=== PATIENT | male | born 1935 | race Caucasian/White ===

== ENCOUNTER 2018-08-12 12:49 | Observation (INO) ==
--- NOTE | 2018-08-12 13:26 | Emergency Department Note ---
Disposition Clinical Impression: Chest pain Qualifiers: Chest pain type: unspecified Qualified Code(s): R07.9 - Chest pain, unspecified Disposition: Admitted As Inpatient Condition: Fair Referrals: Jami Corea DO [Primary Care Provider] - Forms: ED Satisfaction Letter Time of Disposition: 15:15 Chest Pain HPI - General Chief Complaint: ED Chest Pain Stated Complaint: CP Time Seen by Provider: 08/12/18 12:59 Source: patient, family Mode of arrival: ambulatory Limitations: age Vital Signs Reviewed: Yes Nursing Notes Reviewed: Yes - History of Present Illness HPI Narrative: Patient presenting to the ED if the chief complaint of chest pain. Patient has a history of dementia so history is limited and some history is obtained from the daughter. The patient. Patient reports chest pain whenever he woke up this morning. He is unable to describe the quality as whether it is sharp or dull. He does point to his epigastrium where he states it hurts. Family member states that he was pointing to the left side of his chest this morning and that he had open heart surgery for an aortic valve replacement and is on Coumadin and since then has had issues with his xiphoid area. He is also complaining of a headache this morning that has since resolved but they did not notice any facial droop or focal weakness at that time. Patient denies any shortness of breath. He denies any other abdominal pain, but does point to his epigastrium. No vomiting and unable to elicit any history of nausea or diarrhea. No fevers at home Severity scale (1-10): 0 - Related Data Home Medications Medication Instructions Recorded Confirmed Benazepril HCl 08/12/18 Cholecalciferol (D-3) [Vitamin D] 08/12/18 Donepezil 08/12/18 Folic Acid 08/12/18 Furosemide [Lasix] 08/12/18 Glimepiride 08/12/18 Metformin HCl 08/12/18 Methotrexate 08/12/18 Multivitamin 08/12/18 Potassium Chloride 08/12/18 Pravastatin Sodium 08/12/18 Toprol Xl 08/12/18 Vitamin B12 08/12/18 Warfarin 08/12/18 amLODIPine 08/12/18 Allergies Allergy/AdvReac Type Severity Reaction Status Date / Time aspirin Allergy Rash Verified 08/12/18 12:55 povidone-iodine AdvReac Itching Verified 08/12/18 12:55 [From Betadine] soap [From Betadine] AdvReac Itching Verified 08/12/18 12:55 Review of Systems: As reviewed in the HPI. All other systems reviewed are negative or normal. Chest Pain PMH - Past Medical History Medical history: Reports: other Psychiatric history: Reports: no psych history - Social History Smoking Status: Never smoker Alcohol use: Reports: none Drug use: Reports: none Physical Exam CONSTITUTIONAL: [well appearing, alert and in no acute distress] EYES: [EOMI, clear conjunctiva, PERRLA] HENT: [Normocephalic, atraumatic, moist mucus membranes, normal oropharynx] NECK: [normal inspection, full ROM, trachea midline, no obvious swelling] PULMONARY: [normal lung sounds bilaterally, normal chest rise and fall, no respiratory distress or stridor, no wheezes, no rales, no rhonchi CARDIOVASCULAR: [A. fib, harsh systolic murmur, distal extremities are warm and well perfused] GASTROINSTESTINAL: [soft, non-tender, non-rigid, baseline distended, no guarding, no rebound, normal bowel sounds] GENITOURINARY/RECTAL: [deferred] NEUROLOGIC: [Alert, oriented to person and place but not time (baseline), normal speech, moves all extremities] EXTREMITIES: [Normal inspection, full ROM, no tenderness, no pedal edema, normal capillary refill] MUSCULOSKELETAL: [no gross deformities, atraumatic] SKIN: [No cyanosis, no diaphoresis, normal color, warm, no rash] PSYCHIATRIC: [normal mood and affect] Course - Reevaluation(s) Reevaluation #1: Workup his back is unremarkable. Troponin negative. BNP is elevated and his chest x-ray did show some pulmonary vascular congestion without overt edema. Patient is not in acute heart failure. We will give him a dose Lasix. Patient admitted to hospitalist service Vital Signs Temperature 97.7 F 08/12/18 12:51 Pulse Rate 57 08/12/18 12:51 Respiratory Rate 16 08/12/18 12:51 Blood Pressure 135/98 08/12/18 12:51 O2 Sat by Pulse Oximetry 91 08/12/18 12:51 Temperature 97.7 F 08/12/18 13:19 Pulse Rate 61 08/12/18 15:05 Respiratory Rate 18 08/12/18 15:05 Blood Pressure 112/68 08/12/18 15:05 O2 Sat by Pulse Oximetry 100 08/12/18 15:05 Oxygen Delivery Oxygen Delivery Room Air Chest Pain - Medical Records Medical records reviewed: Yes I reviewed the patient's medical records. - Lab Data Lab results reviewed: Yes I reviewed the patient's lab results. Result diagrams: 08/12/18 13:23 08/12/18 13:34 Lab Results 08/12/18 08/12/18 08/12/18 Range/Units 13:13 13:13 13:23 WBC 9.6 (4.3-11.1) K/mcL RBC 3.73 L (4.19-5.50) M/mcL Hgb 11.8 L (12.9-16.9) g/dL Hct 36.2 L (37.5-50.1) % MCV 97.1 (83.0-100.0) fL MCH 31.6 (28.0-33.3) pg MCHC 32.6 (31.6-35.5) g/dL RDW 14.6 H (11.5-14.5) % Plt Count 184 (140-400) K/mcL MPV 11.6 (9.4-12.4) fL Immature Gran % 0.2 (0-4) % Seg Neutrophils % 65.2 % Lymphocytes % 26.7 % Monocytes % 7.0 % Eosinophils % 0.6 % Basophils % 0.3 % Neutrophils # 6.2 (1.6-8.9) K/mcL Lymphocytes # 2.6 (0.6-4.6) K/mcL Monocytes # 0.7 (0.0-1.3) K/mcL Eosinophils # 0.1 (0.0-0.6) K/mcL Basophils # 0.0 (0.0-0.2) K/mcL PT 24.9 H (9.4-12.1) Seconds INR 2.2 Sodium (136-145) mEq/L Potassium (3.5-5.1) mEq/L Chloride (98-107) mEq/L Carbon Dioxide (23-29) mEq/L BUN (8-23) mg/dL Creatinine (0.70-1.30) mg/dL Est GFR ( Amer) (> 60) Est GFR (Non-Af Amer) (> 60) BUN/Creatinine Ratio (6-26) Glucose (70-105) mg/dL Calculated Osmolality (280-300) Calcium (8.6-10.3) mg/dL Troponin I (< 0.04) ng/mL B-Natriuretic Peptide 404 H (Less than 100) pg/mL 08/12/18 Range/Units 13:34 WBC (4.3-11.1) K/mcL RBC (4.19-5.50) M/mcL Hgb (12.9-16.9) g/dL Hct (37.5-50.1) % MCV (83.0-100.0) fL MCH (28.0-33.3) pg MCHC (31.6-35.5) g/dL RDW (11.5-14.5) % Plt Count (140-400) K/mcL MPV (9.4-12.4) fL Immature Gran % (0-4) % Seg Neutrophils % % Lymphocytes % % Monocytes % % Eosinophils % % Basophils % % Neutrophils # (1.6-8.9) K/mcL Lymphocytes # (0.6-4.6) K/mcL Monocytes # (0.0-1.3) K/mcL Eosinophils # (0.0-0.6) K/mcL Basophils # (0.0-0.2) K/mcL PT (9.4-12.1) Seconds INR Sodium 140 (136-145) mEq/L Potassium 4.6 (3.5-5.1) mEq/L Chloride 106 (98-107) mEq/L Carbon Dioxide 26 (23-29) mEq/L BUN 29 H (8-23) mg/dL Creatinine 1.29 (0.70-1.30) mg/dL Est GFR ( Amer) > 60 (> 60) Est GFR (Non-Af Amer) 53 L (> 60) BUN/Creatinine Ratio 22 (6-26) Glucose 76 (70-105) mg/dL Calculated Osmolality 295 (280-300) Calcium 9.8 (8.6-10.3) mg/dL Troponin I < 0.03 (< 0.04) ng/mL B-Natriuretic Peptide (Less than 100) pg/mL - Radiology Data Radiology results reviewed: Yes I reviewed the patient's radiology results. - EKG Data EKG attestation: Yes I reviewed and interpreted this EKG. EKG results narrative: A. fib, rate 62, normal axis, no ischemic changes Heart Score - Score History: Moderately Suspicious EKG: Non Specific repolarisation Disturbance Age: Greater than 65 Risk Factors: 1-2 risk factors Troponin: Less than normal limit HEART Score Total: 5
--- NOTE | 2018-08-12 13:34 | Emergency Department Note ---
Disposition Clinical Impression: Chest pain Qualifiers: Chest pain type: unspecified Qualified Code(s): R07.9 - Chest pain, unspecified Disposition: Admitted As Inpatient Referrals: Jami Corea DO [Primary Care Provider] - Forms: ED Satisfaction Letter Time of Disposition: 15:15 General Adult HPI - General Chief complaint: ED Chest Pain Stated complaint: CP Time Seen by Provider: 08/12/18 12:59 Source: patient, family Mode of arrival: ambulatory Limitations: age - History of Present Illness Pain Scale: 0 - Related Data Home Medications Medication Instructions Recorded Confirmed Benazepril HCl 08/12/18 Cholecalciferol (D-3) [Vitamin D] 08/12/18 Donepezil 08/12/18 Folic Acid 08/12/18 Furosemide [Lasix] 08/12/18 Glimepiride 08/12/18 Metformin HCl 08/12/18 Methotrexate 08/12/18 Multivitamin 08/12/18 Potassium Chloride 08/12/18 Pravastatin Sodium 08/12/18 Toprol Xl 08/12/18 Vitamin B12 08/12/18 Warfarin 08/12/18 amLODIPine 08/12/18 Allergies Allergy/AdvReac Type Severity Reaction Status Date / Time aspirin Allergy Rash Verified 08/12/18 12:55 povidone-iodine AdvReac Itching Verified 08/12/18 12:55 [From Betadine] soap [From Betadine] AdvReac Itching Verified 08/12/18 12:55 Past Medical History - Past Medical History Medical history: Reports: other Psychiatric history: Reports: no psych history - Social History Smoking Status: Never smoker Smokeless Tobacco Status: No Alcohol use: Reports: none Drug use: Reports: none Physical Exam - General Limitations: age General appearance: alert Course Vital Signs Temperature 97.7 F 08/12/18 12:51 Pulse Rate 57 08/12/18 12:51 Respiratory Rate 16 08/12/18 12:51 Blood Pressure 135/98 08/12/18 12:51 O2 Sat by Pulse Oximetry 91 08/12/18 12:51 Temperature 97.7 F 08/12/18 13:19 Pulse Rate 61 08/12/18 15:05 Respiratory Rate 18 08/12/18 15:05 Blood Pressure 112/68 08/12/18 15:05 O2 Sat by Pulse Oximetry 100 08/12/18 15:05 Oxygen Delivery Oxygen Delivery Room Air Medical Decision Making - Lab Data Result diagrams: 08/12/18 13:23 08/12/18 13:34 Lab Results 08/12/18 08/12/18 08/12/18 Range/Units 13:13 13:13 13:23 WBC 9.6 (4.3-11.1) K/mcL RBC 3.73 L (4.19-5.50) M/mcL Hgb 11.8 L (12.9-16.9) g/dL Hct 36.2 L (37.5-50.1) % MCV 97.1 (83.0-100.0) fL MCH 31.6 (28.0-33.3) pg MCHC 32.6 (31.6-35.5) g/dL RDW 14.6 H (11.5-14.5) % Plt Count 184 (140-400) K/mcL MPV 11.6 (9.4-12.4) fL Immature Gran % 0.2 (0-4) % Seg Neutrophils % 65.2 % Lymphocytes % 26.7 % Monocytes % 7.0 % Eosinophils % 0.6 % Basophils % 0.3 % Neutrophils # 6.2 (1.6-8.9) K/mcL Lymphocytes # 2.6 (0.6-4.6) K/mcL Monocytes # 0.7 (0.0-1.3) K/mcL Eosinophils # 0.1 (0.0-0.6) K/mcL Basophils # 0.0 (0.0-0.2) K/mcL PT 24.9 H (9.4-12.1) Seconds INR 2.2 Sodium (136-145) mEq/L Potassium (3.5-5.1) mEq/L Chloride (98-107) mEq/L Carbon Dioxide (23-29) mEq/L BUN (8-23) mg/dL Creatinine (0.70-1.30) mg/dL Est GFR ( Amer) (> 60) Est GFR (Non-Af Amer) (> 60) BUN/Creatinine Ratio (6-26) Glucose (70-105) mg/dL Calculated Osmolality (280-300) Calcium (8.6-10.3) mg/dL Troponin I (< 0.04) ng/mL B-Natriuretic Peptide 404 H (Less than 100) pg/mL 08/12/18 Range/Units 13:34 WBC (4.3-11.1) K/mcL RBC (4.19-5.50) M/mcL Hgb (12.9-16.9) g/dL Hct (37.5-50.1) % MCV (83.0-100.0) fL MCH (28.0-33.3) pg MCHC (31.6-35.5) g/dL RDW (11.5-14.5) % Plt Count (140-400) K/mcL MPV (9.4-12.4) fL Immature Gran % (0-4) % Seg Neutrophils % % Lymphocytes % % Monocytes % % Eosinophils % % Basophils % % Neutrophils # (1.6-8.9) K/mcL Lymphocytes # (0.6-4.6) K/mcL Monocytes # (0.0-1.3) K/mcL Eosinophils # (0.0-0.6) K/mcL Basophils # (0.0-0.2) K/mcL PT (9.4-12.1) Seconds INR Sodium 140 (136-145) mEq/L Potassium 4.6 (3.5-5.1) mEq/L Chloride 106 (98-107) mEq/L Carbon Dioxide 26 (23-29) mEq/L BUN 29 H (8-23) mg/dL Creatinine 1.29 (0.70-1.30) mg/dL Est GFR ( Amer) > 60 (> 60) Est GFR (Non-Af Amer) 53 L (> 60) BUN/Creatinine Ratio 22 (6-26) Glucose 76 (70-105) mg/dL Calculated Osmolality 295 (280-300) Calcium 9.8 (8.6-10.3) mg/dL Troponin I < 0.03 (< 0.04) ng/mL B-Natriuretic Peptide (Less than 100) pg/mL Attestation Statement - Attestation Attestation: I examined this patient and my medical decision-making was reviewed with the Resident Physician. I agree with the documented findings, disposition and treatment plan as described except to the extent set forth below. Patient presents to the ED with a chief complaint of chest pain. Epigastric radiating to the right arm. Onset this morning when he woke up. He denies any pain at this time. History is limited secondary to his dementia. Family provides most history. He does have a history of a valve replacement and atrial fibrillation. On examination he is pleasant and conversant sitting up in bed. Oriented to self and place. Plan. Cardiac workup. Likely admission. Patient with unremarkable workup. No acute ischemic EKG changes. Troponin is negative. He is admitted for further cardiac workup. Head CT 08/12/18 13:17 IMPRESSION: No acute intracranial abnormality. Mild generalized cerebral atrophy. D/ / Nitish Altamirano MD / Nitish Altamirano MD Interpreting Provider: Nitish Altamirano MD
[2018-08-12 14:26] LABS: Basophils % 0.3 %; Eosinophils # 0.1 K/mcL (0.0-0.6); Eosinophils % 0.6 %; Hematocrit 36.2 % (37.5-50.1); Hemoglobin 11.8 g/dL (12.9-16.9); Immature Granulocytes % 0.2 % (0-4); Lymphocytes # 2.6 K/mcL (0.6-4.6); Lymphocytes % 26.7 %; Mean Corpuscular HGB Conc 32.6 g/dL (31.6-35.5); Mean Corpuscular Hemoglobin 31.6 pg (28.0-33.3); Mean Corpuscular Volume 97.1 fL (83.0-100.0); Mean Platelet Volume 11.6 fL (9.4-12.4); Monocytes # 0.7 K/mcL (0.0-1.3); Neutrophils # 6.2 K/mcL (1.6-8.9); Platelet Count 184 K/mcL (140-400); Red Blood Count 3.73 M/mcL (4.19-5.50); Red Cell Distribution Width 14.6 % (11.5-14.5); Segmented Neutrophils % 65.2 %
[2018-08-12 14:33] LABS: INR 2.2; Prothrombin Time 24.9 Seconds (9.4-12.1)
[2018-08-12 14:36] LABS: Troponin I < 0.03 ng/mL (< 0.04)
[2018-08-12 14:44] LABS: BUN/Creatinine Ratio 22 (6-26); Blood Urea Nitrogen 29 mg/dL (8-23); Calcium 9.8 mg/dL (8.6-10.3); Carbon Dioxide 26 mEq/L (23-29); Chloride 106 mEq/L (98-107); Glucose 76 mg/dL (70-105); Osmolality,Calculated 295 (280-300); Potassium 4.6 mEq/L (3.5-5.1); Sodium 140 mEq/L (136-145); eGFR For Non-African Americans 53 (> 60)
[2018-08-12] MEDS ORDERED: Furosemide 40 MG/4 ML VIAL IVP ONE (15:14)
[2018-08-12] MEDS ORDERED: *HR* OxyCODONE Immed Rel 5 MG TABLET PO PRN (15:36)
[2018-08-12] MEDS ORDERED: traMADol 50 MG TABLET PO PRN (15:36)
[2018-08-12] MEDS ORDERED: Acetaminophen 325 MG TABLET PO PRN (15:36)
[2018-08-12] MEDS ORDERED: Naloxone 0.4 MG/ML INJ IVP PRN (15:36)
[2018-08-12] MEDS ORDERED: D5% in Water 1,000 ML IVC PRN (16:03)
[2018-08-12] MEDS ORDERED: Dextrose Gel 15 GM/37.5 ML TUBE PO PRN ×2 (16:03)
[2018-08-12] MEDS ORDERED: *HR* Dextrose 50 % in Water (Syg) 50 ML SYRINGE IVP PRN (16:03)
--- NOTE | 2018-08-12 16:09 | Internal Med History&Physical ---
Date of Encounter: 08/12/18 Time of Encounter: 15:30 Internal Medicine - H&P: HPI Chief complaint: Chest pain Admitted From: Home History of present illness: Mr. Simmons is a 83 year old male with past medical history of diabetes, hypertension, status post aortic valve replacement, A. fib, rheumatoid arthritis, dementia, who presented to the ED with sudden onset of chest pain. History is limited due to patient's underlying cognitive impairment th8s further information was obtained from the family members at bedside. Started about 3 hours prior to presentation, unable to characterize, nonradiating, no clear aggravating/relieving factors. Denies any shortness of breath, nausea/vomiting, or diaphoresis. No cough, sputum production, fever/chills, orthopnea, PND, or leg swelling. No sick contacts. Denies any GI/ symptoms. In the ED, he was afebrile and hemodynamically stable. Lab were unremarkable with negative troponin. BNP 404 (no prior values available for comparison). EKG shows atrial fibrillation with controlled ventricular rate, no STT changes concerning for ischemia. Chest x-ray was negative for acute cardiopulmonary process. Patient was given a dose of Lasix and admitted for further management. Past Med Surg Social Fam HX - Past Medical History Attestation: Yes The following information was validated with the patient. Medical history: diabetes, hyperlipidemia, hypertension, RA, other Additional medical history: aortic valve replaced w/pig valve Psychiatric history: no psych history - Past Surgical History Additional surgical history: open heart, aortic pig valve, left knee replacement - Social History Smoking Status: Never smoker Smokeless Tobacco Status: No Alcohol use: none Drug use: none - Additional Family History Additional family history: No family history of premature CAD Internal Medicine - H&P: Meds Amlodipine Besylate 10 mg PO DAILY 08/12/18 [History] Benazepril HCl [Lotensin] 20 mg PO DAILY 08/12/18 [History] Cholecalciferol (D-3) [Vitamin D] 1,000 units PO DAILY 08/12/18 [History] Cyanocobalamin (Vitamin B-12) [Vitamin B12] 1,000 mcg PO DAILY 08/12/18 [History] Donepezil HCl [Aricept] 5 mg PO HS 08/12/18 [History] Folic Acid 1 mg PO DAILY 08/12/18 [History] Furosemide [Lasix] 20 mg PO DAILY 08/12/18 [History] Glimepiride [Amaryl] 1 mg PO DAILY 08/12/18 [History] Metformin HCl [Glucophage] 1,000 mg PO BID 08/12/18 [History] Methotrexate [Otrexup] 10 mg PO WE 08/12/18 [History] Metoprolol Succinate 50 mg PO DAILY 08/12/18 [History] Multivitamin [One Daily Essential] 1 each PO DAILY 08/12/18 [History] Potassium Chloride [Klor-Con 10] 10 meq PO DAILY 08/12/18 [History] Pravastatin Sodium [Pravachol] 20 mg PO DAILY 08/12/18 [History] Warfarin Sodium 6 mg PO SUMOWETHSA 08/12/18 [History] Warfarin Sodium 9 mg PO TUFR 08/12/18 [History] Allergy/AdvReac Type Severity Reaction Status Date / Time aspirin Allergy Rash Verified 08/12/18 12:55 povidone-iodine AdvReac Itching Verified 08/12/18 12:55 [From Betadine] soap [From Betadine] AdvReac Itching Verified 08/12/18 12:55 All Systems PM: A 10-system review of systems was performed and is negative for pertinent findings except as documented above in the HPI. - Constitutional Vitals: Temp Pulse Resp BP Pulse Ox 97.7 F 62 20 110/70 100 08/12/18 13:19 08/12/18 15:30 08/12/18 15:30 08/12/18 15:30 08/12/18 15:30 Exam: General: Alert and oriented, not in acute distress. HEENT:EOM, pupils equal, round and reactive. Cardiovascular:S1 & S2, No JVD. Pulse regular. Chest wall nontender on palpation Lungs: clear to auscultation, no wheezes/rales Abdomen:Soft, non-tender, no rigidity. Extremities:No deformity or swelling Neurological: grossly non-focal Skin:Normal color, no rash, no lesions. Pulses:Carotid and radial pulses normal +2. Rest of the physical exam is non contributory Internal Med - H&P Results - Labs CBC & Chem 7: 08/12/18 13:23 08/12/18 13:34 Labs: Short CBC 08/12/18 Range/Units 13:23 WBC 9.6 (4.3-11.1) K/mcL Hgb 11.8 L (12.9-16.9) g/dL Hct 36.2 L (37.5-50.1) % Plt Count 184 (140-400) K/mcL Neutrophils # 6.2 (1.6-8.9) K/mcL BMP 08/12/18 13:34 Sodium 140 Potassium 4.6 Chloride 106 Carbon Dioxide 26 BUN 29 H Creatinine 1.29 Glucose 76 Calcium 9.8 Cardiac Enzymes 08/12/18 Range/Units 13:34 Troponin I < 0.03 (< 0.04) ng/mL - Impressions ITS Impressions Chest X-Ray 08/12/18 13:13 IMPRESSION: 1. No acute cardiopulmonary disease. 2. Cardiomegaly. D/ / 08/12/2018 15:31:05 Keshia Tucker MD / Amada Spencer Interpreting Provider: Keshia Tucker MD Head CT 08/12/18 13:17 IMPRESSION: No acute intracranial abnormality. Mild generalized cerebral atrophy. D/ / Nitish Altamirano MD / Nitish Altamirano MD Interpreting Provider: Nitish Altamirano MD - Assessment and plan (1) Chest pain Current Visit: Yes Status: Acute Assessment and plan: Presented with sudden onset of chest pain, risk factors including diabetes, hy pertension, hyperlipidemia, ex-smoker troponin -ve, EKG without concerning ischemic changes allergic to aspirin trend troponin telemetry Echocardiogram Nothing by mouth after midnight, stress test dorita morning Qualifiers: Chest pain type: unspecified Qualified Code(s): R07.9 - Chest pain, unspecified (2) History of aortic valve replacement Current Visit: No Status: Chronic Assessment and plan: History of remote aortic valve replacement >10 years ago echo (3) Afib Current Visit: No Status: Chronic Assessment and plan: On Toprol-XL and Coumadin at home. Continue INR therapeutic Qualifiers: Atrial fibrillation type: chronic Qualified Code(s): I48.2 - Chronic atrial fibrillation (4) HTN (hypertension) Current Visit: No Status: Chronic Assessment and plan: Resume home meds Qualifiers: Hypertension type: essential hypertension Qualified Code(s): I10 - Essential (primary) hypertension (5) Diabetes Current Visit: No Status: Chronic Assessment and plan: on Glimepiride and metformin at home. Hold Low-dose sliding scale ADA diet Qualifiers: Diabetes mellitus type: type 2 Diabetes mellitus longterm insulin use: without longterm use Diabetes mellitus complication status: with unspecified complications Qualified Code(s): E11.8 - Type 2 diabetes mellitus with unspecified complications (6) DVT prophylaxis Current Visit: Yes Status: Acute Assessment and plan: On warfarin - Time Spent With Patient Total time spent is greater than 50% in coordination of care (as documented) at patient's floor/unit and/or counseling patient:
[2018-08-12] MEDS: Insulin LISPRO 300 UNITS/3 ML VIAL SQ SCH (17:29)
[2018-08-12] MEDS ORDERED: *HR* Warfarin 3 MG TABLET PO SCH (18:00)
[2018-08-12] MEDS ORDERED: Insulin LISPRO 300 UNITS/3 ML VIAL SQ SCH (21:00)
[2018-08-13 05:14] LABS: Hematocrit 36.1 % (37.5-50.1); Hemoglobin 12.1 g/dL (12.9-16.9); Mean Corpuscular HGB Conc 33.5 g/dL (31.6-35.5); Mean Corpuscular Hemoglobin 31.6 pg (28.0-33.3); Mean Corpuscular Volume 94.3 fL (83.0-100.0); Mean Platelet Volume 11.5 fL (9.4-12.4); Platelet Count 187 K/mcL (140-400); Red Blood Count 3.83 M/mcL (4.19-5.50); Red Cell Distribution Width 14.6 % (11.5-14.5)
[2018-08-13 05:21] LABS: INR 2.6; Prothrombin Time 29.3 Seconds (9.4-12.1)
[2018-08-13 05:28] LABS: BUN/Creatinine Ratio 25 (6-26); Blood Urea Nitrogen 32 mg/dL (8-23); Calcium 9.7 mg/dL (8.6-10.3); Carbon Dioxide 27 mEq/L (23-29); Chloride 106 mEq/L (98-107); Glucose 109 mg/dL (70-105); Osmolality,Calculated 299 (280-300); Potassium 3.9 mEq/L (3.5-5.1); Sodium 141 mEq/L (136-145); eGFR For Non-African Americans 55 (> 60)
[2018-08-13] MEDS ORDERED: Regadenoson 0.4 MG/5 ML SYRINGE IVP ONE (06:18)
[2018-08-13] MEDS ORDERED: Lisinopril 20 MG TABLET PO SCH (09:00)
[2018-08-13] MEDS ORDERED: Furosemide 20 MG TABLET PO SCH (09:00)
[2018-08-13] MEDS ORDERED: Folic Acid 1 MG TABLET PO SCH (09:00)
[2018-08-13] MEDS ORDERED: Cholecalciferol (D-3) 1,000 UNIT TABLET PO SCH (09:00)
[2018-08-13] MEDS ORDERED: Cyanocobalamin (B-12) 1,000 MCG TABLET PO SCH (09:00)
[2018-08-13] MEDS ORDERED: amLODIPine 5 MG TABLET PO SCH (09:00)
[2018-08-13] MEDS ORDERED: Metoprolol XL (24 HR) Succ 50 MG TAB.ER.24H PO SCH (09:00)
[2018-08-13] MEDS: Insulin LISPRO 300 UNITS/3 ML VIAL SQ SCH ×2 (09:20→11:11)
--- NOTE | 2018-08-13 15:45 | Cardiology Consult Note ---
Date of Encounter: 08/13/18 Time of Encounter: 15:43 Assessment and Plan (1) Chest pain Current Visit: Yes Status: Acute Currently denies any symptoms but is a poor historian. Patients daughter is an RN and with his will keep track of his activities and evaluate for symptoms. They will contact us or present to the ED if symptoms arise. Patient will follow with cardiology in 2 weeks to evaluate also for symptoms. [facility] risks at this time outweigh the benefits since he is mostly asymptomatic and active Qualifiers: Chest pain type: other chest pain Qualified Code(s): R07.89 - Other chest pain; R07.8 - Other chest pain (2) Afib Current Visit: No Status: Chronic Stable on AC Qualifiers: Atrial fibrillation type: chronic Qualified Code(s): I48.2 - Chronic atrial fibrillation (3) History of aortic valve replacement Current Visit: No Status: Chronic Mild otherwise properly functioning AV Discussion w patient/family: The assessment and plan as outlined above was discussed with the patient and/or family members who expressed understanding and agreement. All questions were answered. Thank you for involving us in the care of your patient. Please call with any questions. History of Present Illness Consult date: 08/13/18 Consult reason: Chest Pain Chief complaint: Chest Pain History of present illness: Mr. Simmons is a 83 year old male with multiple CRF's , Afib and is a poor historian due to dementia presenting after a single episode of chest pain as per daughter. Patient does have a hx of AVR on coumadin and is fairly active for his age. He recently has participated in moving carrying heavy boxes and cleaning his house without symptoms or complaints. Stress test was obtained and found to have mild inferior ischemia. EF was preserved on ECHO and 48% on NST. Past Med Surg Social Fam HX - Past Medical History Medical history: atrial fibrillation, diabetes, hyperlipidemia, hypertension, RA, other Additional medical history: aortic valve replaced w/pig valve Psychiatric history: no psych history - Past Surgical History Additional surgical history: CABG, aortic pig valve, right knee replacement - Social History Smoking Status: Former smoker Packs per day: 1 Smokeless Tobacco Status: No Alcohol use: none Drug use: none - Family History Mother History Unknown: Yes Living Status: Father History Unknown: Yes Living Status: Medications and Allergies Amlodipine Besylate 10 mg PO DAILY 08/12/18 [History] Benazepril HCl [Lotensin] 20 mg PO DAILY 08/12/18 [History] Cholecalciferol (D-3) [Vitamin D] 1,000 units PO DAILY 08/12/18 [History] Cyanocobalamin (Vitamin B-12) [Vitamin B12] 1,000 mcg PO DAILY 08/12/18 [History] Donepezil HCl [Aricept] 5 mg PO HS 08/12/18 [History] Folic Acid 1 mg PO DAILY 08/12/18 [History] Furosemide [Lasix] 20 mg PO DAILY 08/12/18 [History] Glimepiride [Amaryl] 1 mg PO DAILY 08/12/18 [History] Metformin HCl [Glucophage] 1,000 mg PO BID 08/12/18 [History] Methotrexate [Otrexup] 10 mg PO WE 08/12/18 [History] Metoprolol Succinate 50 mg PO DAILY 08/12/18 [History] Multivitamin [One Daily Essential] 1 each PO DAILY 08/12/18 [History] Potassium Chloride [Klor-Con 10] 10 meq PO DAILY 08/12/18 [History] Pravastatin Sodium [Pravachol] 20 mg PO DAILY 08/12/18 [History] Warfarin Sodium 6 mg PO SUMOWETHSA 08/12/18 [History] Warfarin Sodium 9 mg PO TUFR 08/12/18 [History] Allergy/AdvReac Type Severity Reaction Status Date / Time aspirin Allergy Rash Verified 08/12/18 12:55 povidone-iodine AdvReac Itching Verified 08/12/18 12:55 [From Betadine] soap [From Betadine] AdvReac Itching Verified 08/12/18 12:55 All Systems Review: The remainder of the systems were reviewed and are negative Physical Examination General: Conversant, No Apparent Distress HEENT: Atraumatic, Normocephaly, Mucus Membranes Moist Neck: No JVD, Normal carotid pulses Cardiac: Reg Rate and Rhythm, Normal S1 and S2, No Murmur Lungs: Normal Breath Sounds, No Wheeze, Rales, Rhonchi Neuro: Alert and responsive, No focal deficits noted Abdomen: Soft, Non-Tender Skin: No rashes noted on visualized skin Musculoskeletal: No Chest Wall Tenderness Extremities: No Clubbing, No Cyanosis, No Edema, Normal Pulses Results 08/13/18 04:44 08/13/18 04:44 Lab Results 08/12/18 08/13/18 08/13/18 19:47 04:44 04:44 WBC 9.4 Hgb 12.1 L Hct 36.1 L Plt Count 187 INR Sodium 141 Potassium 3.9 Chloride 106 Carbon Dioxide 27 BUN 32 H Creatinine 1.26 Glucose 109 H Calcium 9.7 Troponin I 0.03 08/13/18 04:44 WBC Hgb Hct Plt Count INR 2.6 Sodium Potassium Chloride Carbon Dioxide BUN Creatinine Glucose Calcium Troponin I Consult Discharge Plan - Plan Referrals: Joana Nazario CNP [Partnered Physician] - 08/22/18 10:00 am
--- NOTE | 2018-08-13 16:01 | Discharge Summary ---
- NOTES TO OUTPATIENT PROVIDER Notes to Outpatient Provider: f/u with PCP in one week. f/u with Cardiology in 1-2 weeks. Orders not resulted at time of discharge: Pending orders 08/12/18 16:05 NM marisela perf SPECT single [NM] Routine Date of Encounter: 08/13/18 Time of Encounter: 15:57 - Discharge Diagnosis (1) Chest pain Priority: Primary Status: Acute Qualifiers: Chest pain type: other chest pain Qualified Code(s): R07.89 - Other chest pain; R07.8 - Other chest pain (2) HTN (hypertension) Priority: Secondary Status: Chronic Qualifiers: Hypertension type: essential hypertension Qualified Code(s): I10 - Essential (primary) hypertension (3) Diabetes Priority: Secondary Status: Chronic Qualifiers: Diabetes mellitus type: type 2 Diabetes mellitus long-term insulin use: without manager terminal use Diabetes mellitus complication status: with unspecified complications Qualified Code(s): E11.8 - Type 2 diabetes mellitus with unspecified complications (4) DVT prophylaxis Priority: Secondary Status: Acute (5) Afib Priority: Secondary Status: Chronic Qualifiers: Atrial fibrillation type: chronic Qualified Code(s): I48.2 - Chronic atrial fibrillation (6) History of aortic valve replacement Priority: Secondary Status: Chronic Hospital course: Mr. Simmons is a 83 year old male with past medical history of diabetes, hypertension, status post aortic valve replacement, A. fib, rheumatoid arthritis, dementia, who presented to the ED with sudden onset of chest pain. His initial troponin in the emergency room is negative. EKG showed atrial fibrillation with controlled ventricular rate, no STT changes concerning for ischemia. Chest x-ray was negative for acute cardiopulmonary process. 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 His serial troponin came back is negative. Since patient is high risk for ACS he did go for nuclear stress test. His nuclear stress test came back as mild inferior ischemia on perfusion study. No infarction noticed on perfusion study. Patient was evaluated to machine presser who did not recommend any interventions during this hospitalization, wanted him to follow up with the machine presser as outpatient in 2 weeks to discuss further options. Talked to patient's family at bedside and explained to them about these instructions. - Time Spent with Patient Total time spent providing and/or coordinating discharge services: - Discharge Medications Home Medications: Amlodipine Besylate 10 mg PO DAILY 08/12/18 [History] Benazepril HCl [Lotensin] 20 mg PO DAILY 08/12/18 [History] Cholecalciferol (D-3) [Vitamin D] 1,000 units PO DAILY 08/12/18 [History] Cyanocobalamin (Vitamin B-12) [Vitamin B12] 1,000 mcg PO DAILY 08/12/18 [History] Donepezil HCl [Aricept] 5 mg PO HS 08/12/18 [History] Folic Acid 1 mg PO DAILY 08/12/18 [History] Furosemide [Lasix] 20 mg PO DAILY 08/12/18 [History] Glimepiride [Amaryl] 1 mg PO DAILY 08/12/18 [History] Metformin HCl [Glucophage] 1,000 mg PO BID 08/12/18 [History] Methotrexate [Otrexup] 10 mg PO WE 08/12/18 [History] Metoprolol Succinate 50 mg PO DAILY 08/12/18 [History] Multivitamin [One Daily Essential] 1 each PO DAILY 08/12/18 [History] Potassium Chloride [Klor-Con 10] 10 meq PO DAILY 08/12/18 [History] Pravastatin Sodium [Pravachol] 20 mg PO DAILY 08/12/18 [History] Warfarin Sodium 6 mg PO SUMOWETHSA 08/12/18 [History] Warfarin Sodium 9 mg PO TUFR 08/12/18 [History] Allergies/Adverse Reactions: Allergy/AdvReac Type Severity Reaction Status Date / Time aspirin Allergy Rash Verified 08/12/18 12:55 povidone-iodine AdvReac Itching Verified 08/12/18 12:55 [From Betadine] soap [From Betadine] AdvReac Itching Verified 08/12/18 12:55 Date of admission: 08/12/18 15:59 Primary care physician: Criselda Hitchcock Consults: 08/13/18 14:39 Consult to Cardiology [CONS] Routine Comment: Consulting Provider: Cardiology Brooke Reason for Consult: Abnormal stress test Time Notified: 14:39 Call Completed: Yes - Constitutional Vitals: Temp Pulse Resp BP Pulse Ox 97.5 F L 66 14 109/45 97 08/13/18 04:02 08/13/18 04:02 08/13/18 04:02 08/13/18 04:02 08/13/18 04:02 General appearance: Present: cooperative, A&O X 1 Exam: See below - Head Head exam: Present: atraumatic, normal inspection - Respiratory Respiratory exam: Present: decreased breath sounds. Absent: rales, respiratory distress, rhonchi, wheezes - Cardiovascular Cardiovascular exam: Present: +S1, +S2. Absent: RRR, tachycardia - GI/Abdominal GI/Abdominal exam: Present: normal bowel sounds, soft. Absent: rebound, rigid, tenderness - Extremities Exam Extremities exam: Absent: calf tenderness, pedal edema, tenderness - Back Exam Back exam: Absent: CVA tenderness (L), CVA tenderness (R) - Neurological Exam Neurological exam: Present: alert - Psychiatric Psychiatric exam: Present: normal affect, normal mood - Patient Status Disposition: Home, Self-Care Condition: Good Overall status at discharge: patient is back to baseline - Discharge Instructions Follow Up With: Joana Nazario CNP [Partnered Physician] - 08/22/18 10:00 am Gregoria Day [Partnered Physician] - - Diet and Activity Activity: increase activity as tolerated Diet: low salt diet
[2018-08-13 16:23] VITALS: BP 113/76
[2018-08-13] MEDS ORDERED: *HR* Warfarin 3 MG TABLET PO SCH (18:00)
--- NOTE | 2018-08-14 15:43 | Electrocardiograph Report ---
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
--- NOTE | 2018-08-14 18:40 | Electrocardiograph Report ---
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
== END 2018-08-13 16:40 | disposition home or self-care (01) ==
LOC: 3BNU 12:49 → EMEROOARM 12:49 → SUATTDRO 15:59 → 3BNU 16:38
PROVIDERS: ADMIT Student in an Organized Health Care Education/Training Program; ATTEND Family Medicine

== ENCOUNTER 2020-07-14 18:10 | Inpatient (IN) ==
[2020-07-15] MEDS ORDERED: Ondansetron ODT 4 MG TAB.RAPDIS SL PRN (02:26)
[2020-07-15] MEDS ORDERED: Naloxone 0.4 MG/ML INJ IVP PRN (02:26)
[2020-07-15] MEDS ORDERED: Acetaminophen 325 MG TABLET PO PRN (02:26)
[2020-07-15] MEDS ORDERED: Haloperidol Lactate 5 MG/ML VIAL IVP PRN (02:30)
[2020-07-15] MEDS ORDERED: Perflutren Lipid Microsphere 1.3 ML in 0.9 % Sodium Chloride 8.7 ML IVP PRN (02:56)
[2020-07-15] MEDS ORDERED: D5% in Water 1,000 ML IVC PRN (02:58)
[2020-07-15] MEDS ORDERED: *HR* Dextrose 50 % in Water (Vial) 50 ML VIAL IVP PRN (02:58)
[2020-07-15] MEDS ORDERED: Dextrose Gel 15 GM/37.5 ML TUBE PO PRN ×2 (02:58)
[2020-07-15] MEDS: Insulin LISPRO 300 UNITS/3 ML VIAL SQ SCH ×4 (03:19→16:30)
[2020-07-15 04:02] LABS: Basophils % 0.5 %; Eosinophils # 0.2 K/mcL (0.0-0.6); Eosinophils % 2.6 %; Hematocrit 32.8 % (37.5-50.1); Hemoglobin 10.6 g/dL (12.9-16.9); Immature Granulocytes % 0.3 % (0-4); Lymphocytes # 2.3 K/mcL (0.6-4.6); Lymphocytes % 30.4 %; Mean Corpuscular HGB Conc 32.3 g/dL (31.6-35.5); Mean Corpuscular Hemoglobin 31.8 pg (28.0-33.3); Mean Corpuscular Volume 98.5 fL (83.0-100.0); Mean Platelet Volume 11.3 fL (9.4-12.4); Monocytes # 0.7 K/mcL (0.0-1.3); Monocytes % 9.7 %; Neutrophils # 4.2 K/mcL (1.6-8.9); Platelet Count 173 K/mcL (140-400); Red Blood Count 3.33 M/mcL (4.19-5.50); Segmented Neutrophils % 56.5 %; White Blood Count 7.4 K/mcL (4.3-11.1)
[2020-07-15 04:07] LABS: INR 2.5; Prothrombin Time 28.5 Seconds (9.4-12.1)
[2020-07-15 04:23] LABS: Alanine Aminotransferase 15 Units/L (7-52); Albumin 3.4 g/dL (3.5-5.7); Albumin/Globulin Ratio 1.3 (1.1-2.2); Alkaline Phosphatase 64 Units/L (34-104); Aspartate Amino Transferase 26 Units/L (13-39); BUN/Creatinine Ratio 21 (6-26); Bilirubin,Total 0.6 mg/dL (0.3-1.0); Blood Urea Nitrogen 24 mg/dL (8-23); Calcium 8.7 mg/dL (8.6-10.3); Carbon Dioxide 24 mEq/L (23-29); Chloride 112 mEq/L (98-107); Chol/HDL Ratio 2.2 (0-4.9); Cholesterol 104 mg/dL (< 200); Globulin 2.7 g/dL (2.4-3.5); Glucose 125 mg/dL (70-105); HDL Cholesterol 47 mg/dL (40-59); LDL Cholesterol,Calculated 42 mg/dL (< 100); Magnesium 1.8 mg/dL (1.6-2.6); Osmolality,Calculated 302 (280-300); Phosphorous 2.1 mg/dL (2.7-4.5); Potassium 3.1 mEq/L (3.5-5.1); Sodium 143 mEq/L (136-145); Total Protein 6.1 g/dL (6.4-8.9); Triglycerides 74 mg/dL (< 150); eGFR For African Americans > 60 (> 60); eGFR For Non-African Americans > 60 (> 60)
[2020-07-15 04:27] LABS: Troponin I 0.13 ng/mL (< 0.04)
[2020-07-15 04:38] LABS: Thyroid Stimulating Hormone 0.917 mcIU/mL (0.340-5.600)
[2020-07-15 10:46] LABS: Estimated Average Glucose 166 mg/dl
[2020-07-15] MEDS: Isosorbide MONOnitrate (24 HR) 30 MG TAB.ER.24H PO SCH (11:10)
[2020-07-15] MEDS: lisinopriL 10 MG TABLET PO SCH (11:10)
[2020-07-15] MEDS: Metoprolol XL (24 HR) Succ 50 MG TAB.ER.24H PO SCH (11:11)
[2020-07-15] MEDS ORDERED: Simethicone 80 MG TAB.CHEW PO PRN (11:29)
[2020-07-15] MEDS: Cyanocobalamin (B-12) 1,000 MCG TABLET PO SCH (12:30)
[2020-07-15 14:51] LABS: Bilirubin,Urine Negative (Negative); Blood,Urine Negative (Negative); Clarity,Urine Clear (Clear); Color,Urine Light-Yellow (Yellow); Glucose,Urine (UA) >=1000 mg/dL (Normal); Ketones,Urine Negative (Negative); Leukocyte Esterase,Urine Negative (Negative); Mucus,Urine Few per lpf (None-Few); Nitrite,Urine Negative (Negative); Protein,Urine Trace mg/dL (Neg-Trace); RBC,Urine 0-3 per hpf (0-3); Specific Gravity,Urine 1.018 (1.010-1.025); Squamous Epithelial Cell,Urine Few per hpf (None-Few); Urobilinogen,Urine Normal (Normal); WBC,Urine 0-3 per hpf (0-3)
[2020-07-15] MEDS ORDERED: *HR* Warfarin 3 MG TABLET PO ONE (18:00)
[2020-07-15] MEDS ORDERED: Warfarin perPT PO PRN (18:00)
[2020-07-15] MEDS: Thiamine (B-1) 100 MG in 0.9 % Sodium Chloride 50 ML IVPB SCH ×2 (18:32→21:47)
[2020-07-15] MEDS ORDERED: Haloperidol Lactate 5 MG/ML VIAL IVP ONE (22:45)
[2020-07-15] MEDS: QUEtiapine Fumarate 25 MG TABLET PO SCH (22:47)
[2020-07-16 05:23] LABS: Basophils % 0.5 %; Eosinophils # 0.2 K/mcL (0.0-0.6); Eosinophils % 2.2 %; Hematocrit 34.4 % (37.5-50.1); Hemoglobin 10.9 g/dL (12.9-16.9); Immature Granulocytes % 0.2 % (0-4); Lymphocytes # 3.4 K/mcL (0.6-4.6); Lymphocytes % 39.4 %; Mean Corpuscular HGB Conc 31.7 g/dL (31.6-35.5); Mean Corpuscular Hemoglobin 31.7 pg (28.0-33.3); Monocytes # 0.9 K/mcL (0.0-1.3); Monocytes % 10.4 %; Platelet Count 191 K/mcL (140-400); Red Blood Count 3.44 M/mcL (4.19-5.50); Segmented Neutrophils % 47.3 %; White Blood Count 8.6 K/mcL (4.3-11.1)
[2020-07-16 05:32] LABS: INR 2.5; Prothrombin Time 27.8 Seconds (9.4-12.1)
[2020-07-16 05:41] LABS: BUN/Creatinine Ratio 16 (6-26); Blood Urea Nitrogen 19 mg/dL (8-23); Carbon Dioxide 25 mEq/L (23-29); Chloride 109 mEq/L (98-107); Glucose 101 mg/dL (70-105); Magnesium 1.9 mg/dL (1.6-2.6); Osmolality,Calculated 292 (280-300); Phosphorous 2.5 mg/dL (2.7-4.5); Potassium 4.1 mEq/L (3.5-5.1); Sodium 140 mEq/L (136-145); eGFR For African Americans > 60 (> 60); eGFR For Non-African Americans 57 (> 60)
[2020-07-16] MEDS: Insulin LISPRO 300 UNITS/3 ML VIAL SQ SCH ×3 (10:08→16:33)
[2020-07-16] MEDS: Furosemide 20 MG TABLET PO SCH (10:15)
[2020-07-16] MEDS: Cyanocobalamin (B-12) 1,000 MCG TABLET PO SCH (10:15)
[2020-07-16] MEDS: lisinopriL 10 MG TABLET PO SCH (10:15)
[2020-07-16] MEDS: Metoprolol XL (24 HR) Succ 50 MG TAB.ER.24H PO SCH (10:15)
[2020-07-16] MEDS: Folic Acid 1 MG TABLET PO SCH (10:16)
[2020-07-16] MEDS: Isosorbide MONOnitrate (24 HR) 30 MG TAB.ER.24H PO SCH (10:16)
[2020-07-16] MEDS: Thiamine (B-1) 100 MG in 0.9 % Sodium Chloride 50 ML IVPB SCH ×3 (12:49→20:29)
[2020-07-16] MEDS ORDERED: *HR* Warfarin 3 MG TABLET PO ONE (18:00)
[2020-07-16] MEDS: QUEtiapine Fumarate 25 MG TABLET PO SCH (20:29)
[2020-07-17 05:45] LABS: Basophils % 0.5 %; Eosinophils # 0.2 K/mcL (0.0-0.6); Eosinophils % 2.5 %; Hematocrit 33.3 % (37.5-50.1); Hemoglobin 10.4 g/dL (12.9-16.9); Immature Granulocytes % 0.3 % (0-4); Lymphocytes # 2.7 K/mcL (0.6-4.6); Lymphocytes % 34.9 %; Mean Corpuscular HGB Conc 31.2 g/dL (31.6-35.5); Mean Corpuscular Hemoglobin 31.5 pg (28.0-33.3); Mean Corpuscular Volume 100.9 fL (83.0-100.0); Mean Platelet Volume 11.2 fL (9.4-12.4); Monocytes # 0.9 K/mcL (0.0-1.3); Monocytes % 11.3 %; Neutrophils # 3.9 K/mcL (1.6-8.9); Platelet Count 191 K/mcL (140-400); Segmented Neutrophils % 50.5 %; White Blood Count 7.6 K/mcL (4.3-11.1)
[2020-07-17 05:51] LABS: INR 3.2; Prothrombin Time 35.3 Seconds (9.4-12.1)
[2020-07-17 06:01] LABS: BUN/Creatinine Ratio 15 (6-26); Blood Urea Nitrogen 19 mg/dL (8-23); Calcium 8.9 mg/dL (8.6-10.3); Carbon Dioxide 28 mEq/L (23-29); Chloride 108 mEq/L (98-107); Glucose 120 mg/dL (70-105); Osmolality,Calculated 295 (280-300); Potassium 4.1 mEq/L (3.5-5.1); Sodium 141 mEq/L (136-145); eGFR For African Americans > 60 (> 60); eGFR For Non-African Americans 55 (> 60)
[2020-07-17] MEDS: lisinopriL 10 MG TABLET PO SCH (09:00)
[2020-07-17] MEDS: Folic Acid 1 MG TABLET PO SCH (09:00)
[2020-07-17] MEDS: Isosorbide MONOnitrate (24 HR) 30 MG TAB.ER.24H PO SCH (09:00)
[2020-07-17] MEDS: Furosemide 20 MG TABLET PO SCH (09:00)
[2020-07-17] MEDS: Metoprolol XL (24 HR) Succ 50 MG TAB.ER.24H PO SCH (09:05)
[2020-07-17] MEDS: Thiamine (B-1) 100 MG in 0.9 % Sodium Chloride 50 ML IVPB SCH ×2 (09:05→15:46)
[2020-07-17] MEDS: Insulin LISPRO 300 UNITS/3 ML VIAL SQ SCH ×2 (09:11→13:24)
[2020-07-17 15:30] VITALS: BP 115/64
== END 2020-07-17 16:09 | disposition other institution (70) | DRG 884 ==
LOC: 3BNU → SUATTDRO 07-15 01:56
PROVIDERS: ADMIT Student in an Organized Health Care Education/Training Program; ATTEND Internal Medicine

== ENCOUNTER 2021-05-27 09:43 | Inpatient (IN) ==
[2021-05-27] MEDS ORDERED: Ipratropium/Albuterol Neb 3 ML IH ONE (10:07)
[2021-05-27] MEDS ORDERED: DilTIAZem 50 MG/50 ML IV.SOLN IVC SCH (10:30)
[2021-05-27 10:49] LABS: Bacteria,Urine Few per hpf (None-Few); Bilirubin,Urine Negative (Negative); Blood,Urine Negative (Negative); Clarity,Urine Turbid (Clear); Color,Urine Yellow (Yellow); Glucose,Urine (UA) Normal (Normal); Hyaline Casts,Urine Few per lpf (None Seen); Ketones,Urine Trace mg/dL (Negative); Leukocyte Esterase,Urine Negative (Negative); Mucus,Urine Few per lpf (None-Few); Nitrite,Urine Negative (Negative); Protein,Urine Trace mg/dL (Neg-Trace); RBC,Urine 0-3 per hpf (0-3); Specific Gravity,Urine 1.019 (1.010-1.025); Urobilinogen,Urine Normal (Normal); WBC,Urine 0-3 per hpf (0-3)
[2021-05-27 10:51] LABS: VBG HCO3 26 mEq/L (21-27); VBG PCO2 59 mmHg (41-51); VBG PH 7.25 pH Units (7.32-7.42); VBG PO2 23 mmHg (25-50)
[2021-05-27 10:52] LABS: Basophils # 0.1 K/mcL (0.0-0.2); Basophils % 0.4 %; Eosinophils % 0.2 %; Hematocrit 45.4 % (37.5-50.1); Hemoglobin 13.6 g/dL (12.9-16.9); Immature Granulocytes % 1.2 % (0-4); Lymphocytes # 2.7 K/mcL (0.6-4.6); Lymphocytes % 12.6 %; Mean Corpuscular Hemoglobin 30.8 pg (28.0-33.3); Mean Corpuscular Volume 102.9 fL (83.0-100.0); Monocytes # 1.3 K/mcL (0.0-1.3); Monocytes % 5.8 %; Neutrophils # 17.4 K/mcL (1.6-8.9); Platelet Count 352 K/mcL (140-400); Red Blood Count 4.41 M/mcL (4.19-5.50); Red Cell Distribution Width 15.6 % (11.5-14.5); Segmented Neutrophils % 79.8 %; White Blood Count 21.7 K/mcL (4.3-11.1)
[2021-05-27] MEDS ORDERED: Piperacillin/Tazobactam 3.375 GM in 0.9 % Sodium Chloride Mini Bag 100 ML IVPB ONE (10:56)
[2021-05-27] MEDS ORDERED: Isovue-370 500 ML BOTTLE IVP ONE (10:58)
[2021-05-27 11:11] LABS: Activated Partial Thrombo Time 51.9 Seconds (26.0-36.0)
[2021-05-27 11:16] LABS: INR 5.5; Prothrombin Time 60.5 Seconds (9.4-12.1)
[2021-05-27] MEDS: 0.9 % Sodium Chloride 1,000 ML IVC SCH ×2 (11:53→13:38)
[2021-05-27] MEDS ORDERED: Aspirin 81 MG TAB.CHEW PO STA (12:29)
[2021-05-27 12:30] LABS: Troponin I 0.1 ng/mL (< 0.04)
[2021-05-27 12:33] LABS: Albumin 3.5 g/dL (3.5-5.7); Albumin/Globulin Ratio 0.8 (1.1-2.2); Bilirubin,Direct 0.3 mg/dL (0.0-0.2); Bilirubin,Indirect 0.4 mg/dL (0.0-1.0); Bilirubin,Total 0.7 mg/dL (0.3-1.0); Calcium 9.5 mg/dL (8.6-10.3); Globulin 4.6 g/dL (2.4-3.5); Magnesium 2.3 mg/dL (1.6-2.6); Phosphorous 5.7 mg/dL (2.7-4.5); Potassium 4.2 mEq/L (3.5-5.1); Total Protein 8.1 g/dL (6.4-8.9)
[2021-05-27 16:23] LABS: ABG Base Excess -2 mEq/L (-2 to 3); ABG HCO3 22 mEq/L (21-27); ABG Oxygen Saturation 93 % (95-98); ABG PCO2 35 mmHg (35-45); ABG PH 7.41 pH Units (7.32-7.45); ABG PO2 67 mmHg (85-104); ABG TCO2 23 mEq/L (20-26)
[2021-05-27] MEDS ORDERED: Naloxone 0.4 MG/ML INJ IVP PRN (17:37)
[2021-05-27] MEDS ORDERED: Ondansetron ODT 4 MG TAB.RAPDIS SL PRN (17:37)
[2021-05-27] MEDS ORDERED: Acetaminophen 325 MG TABLET PO PRN (17:41)
[2021-05-27] MEDS ORDERED: *HR* Metoprolol 5 MG/5 ML VIAL IVP PRN (17:41)
[2021-05-27] MEDS ORDERED: *HR* Dextrose 50 % in Water (Syg) 50 ML SYRINGE IVP PRN (18:14)
[2021-05-27] MEDS ORDERED: D5% in Water 1,000 ML IVC PRN (18:14)
[2021-05-27] MEDS ORDERED: Dextrose Gel 15 GM/37.5 ML TUBE PO PRN ×2 (18:14)
[2021-05-27] MEDS: Ipratropium 1 PUFF INHALER IH SCH (20:34)
[2021-05-27] MEDS ORDERED: Acetaminophen IV 500 MG/50 ML BAG IVPB ONE (23:31)
[2021-05-28] MEDS: Ipratropium 1 PUFF INHALER IH SCH ×7 (00:02→20:14)
[2021-05-28 02:18] LABS: Calcium 8.7 mg/dL (8.6-10.3); Potassium 4.2 mEq/L (3.5-5.1)
[2021-05-28] MEDS: Insulin LISPRO 300 UNITS/3 ML VIAL SUBQ SCH ×4 (02:55→18:15)
[2021-05-28 07:38] LABS: Mean Corpuscular Volume 99.7 fL (83.0-100.0); Nucleated Red Blood Cells 0.1 /100 WBC (0)
[2021-05-28 07:40] LABS: Hematocrit 37.2 % (37.5-50.1); Hemoglobin 11.4 g/dL (12.9-16.9); Mean Corpuscular HGB Conc 30.6 g/dL (31.6-35.5); Mean Corpuscular Hemoglobin 30.6 pg (28.0-33.3); Platelet Count 205 K/mcL (140-400); Red Blood Count 3.73 M/mcL (4.19-5.50)
[2021-05-28 07:43] LABS: Calcium 8.8 mg/dL (8.6-10.3); Magnesium 2.2 mg/dL (1.6-2.6); Phosphorous 3.8 mg/dL (2.7-4.5); Potassium 4.5 mEq/L (3.5-5.1)
[2021-05-28 07:52] LABS: White Blood Count 30.2 K/mcL (4.3-11.1)
[2021-05-28 08:23] LABS: Lymphocytes # 0.6 K/mcL (0.6-4.6); Neutrophils # 24.8 K/mcL (1.6-8.9); Platelet Estimate Normal (Normal)
[2021-05-28] MEDS: Dexamethasone Sodium Phos/PF 10 MG/ML VIAL IVP SCH (08:50)
[2021-05-28] MEDS ORDERED: Piperacillin/Tazobactam 3.375 GM in 0.9 % Sodium Chloride Mini Bag 100 ML IVPB SCH ×2 (14:00→20:00)
[2021-05-28] MEDS ORDERED: Cefepime HCl 2,000 MG in 0.9 % Sodium Chloride Mini Bag 100 ML IVPB SCH (18:00)
[2021-05-28] MEDS: Cefepime HCl 1,000 MG in 0.9 % Sodium Chloride Mini Bag 100 ML IVPB SCH (18:34)
[2021-05-28] MEDS: Divalproex Sodium 125 MG Sprinkle Capsule (DR) PO SCH (21:05)
[2021-05-29] MEDS: Insulin LISPRO 300 UNITS/3 ML VIAL SUBQ SCH ×4 (00:50→19:13)
[2021-05-29] MEDS: Ipratropium 1 PUFF INHALER IH SCH ×7 (04:14→23:13)
[2021-05-29] MEDS: Divalproex Sodium 125 MG Sprinkle Capsule (DR) PO SCH ×2 (08:33→21:29)
[2021-05-29] MEDS: Cyanocobalamin (B-12) 1,000 MCG TABLET PO SCH (08:34)
[2021-05-29] MEDS: Folic Acid 1 MG TABLET PO SCH (08:34)
[2021-05-29] MEDS: Dexamethasone Sodium Phos/PF 10 MG/ML VIAL IVP SCH (08:35)
[2021-05-29] MEDS ORDERED: Furosemide 40 MG TABLET PO SCH (09:00)
[2021-05-29 10:52] LABS: Immature Platelets 10.7 % (1.1-6.1)
[2021-05-29 10:55] LABS: Hemoglobin 11.8 g/dL (12.9-16.9); Nucleated Red Blood Cells 0.1 /100 WBC (0)
[2021-05-29 10:56] LABS: Basophils # 0.1 K/mcL (0.0-0.2); Basophils % 0.3 %; Hematocrit 37.1 % (37.5-50.1); Immature Granulocytes % 2.7 % (0-4); Lymphocytes # 0.7 K/mcL (0.6-4.6); Mean Corpuscular HGB Conc 31.8 g/dL (31.6-35.5); Mean Corpuscular Hemoglobin 31.4 pg (28.0-33.3); Mean Corpuscular Volume 98.7 fL (83.0-100.0); Monocytes # 0.6 K/mcL (0.0-1.3); Platelet Count 245 K/mcL (140-400); Red Blood Count 3.76 M/mcL (4.19-5.50); White Blood Count 28.3 K/mcL (4.3-11.1)
[2021-05-29 11:11] LABS: Calcium 9.4 mg/dL (8.6-10.3); Magnesium 2.3 mg/dL (1.6-2.6); Potassium 3.8 mEq/L (3.5-5.1)
[2021-05-29 11:33] LABS: Prothrombin Time 134.3 Seconds (9.4-12.1)
[2021-05-29 11:34] LABS: INR 12.3
[2021-05-29] MEDS ORDERED: *HR* Phytonadione 10 MG/ML AMPUL SQ ONE (11:50)
[2021-05-29] MEDS ORDERED: D5% in Water 500 ML IVC SCH (12:00)
[2021-05-29 12:15] LABS: Burr Cells 1+ (Not Present); Platelet Estimate Normal (Normal); Toxic Granulation Present (Not Present)
[2021-05-29 15:13] LABS: Toxic Vacuolation Present (Not Present)
[2021-05-29 15:30] LABS: Neutrophils # 30.7 K/mcL (1.6-8.9)
[2021-05-29] MEDS: Cefepime HCl 1,000 MG in 0.9 % Sodium Chloride Mini Bag 100 ML IVPB SCH (21:28)
[2021-05-30] MEDS: Insulin LISPRO 300 UNITS/3 ML VIAL SUBQ SCH ×4 (00:29→19:40)
[2021-05-30] MEDS: Ipratropium 1 PUFF INHALER IH SCH ×6 (03:42→23:30)
[2021-05-30 07:48] LABS: Nucleated Red Blood Cells 0.1 /100 WBC (0)
[2021-05-30 08:03] LABS: INR 3.7; Prothrombin Time 40.6 Seconds (9.4-12.1)
[2021-05-30 08:10] LABS: Calcium 9.9 mg/dL (8.6-10.3); Potassium 4.2 mEq/L (3.5-5.1)
[2021-05-30 08:11] LABS: Magnesium 2.5 mg/dL (1.6-2.6); Phosphorous 3.7 mg/dL (2.7-4.5)
[2021-05-30 08:12] LABS: Hemoglobin 11.6 g/dL (12.9-16.9); Immature Granulocytes % 0.8 % (0-4)
[2021-05-30 08:14] LABS: Basophils # 0.1 K/mcL (0.0-0.2); Basophils % 0.3 %; Hematocrit 37.4 % (37.5-50.1); Immature Platelets 10.6 % (1.1-6.1); Lymphocytes # 0.9 K/mcL (0.6-4.6); Mean Corpuscular Hemoglobin 30.4 pg (28.0-33.3); Mean Corpuscular Volume 98.2 fL (83.0-100.0); Mean Platelet Volume 13.2 fL (9.4-12.4); Monocytes # 0.6 K/mcL (0.0-1.3); Platelet Count 268 K/mcL (140-400); Red Blood Count 3.81 M/mcL (4.19-5.50); Red Cell Distribution Width 16.2 % (11.5-14.5); White Blood Count 27.5 K/mcL (4.3-11.1)
[2021-05-30] MEDS: Cyanocobalamin (B-12) 1,000 MCG TABLET PO SCH (08:25)
[2021-05-30] MEDS: Folic Acid 1 MG TABLET PO SCH (08:25)
[2021-05-30] MEDS: Dexamethasone Sodium Phos/PF 10 MG/ML VIAL IVP SCH (08:26)
[2021-05-30] MEDS: Divalproex Sodium 125 MG Sprinkle Capsule (DR) PO SCH ×2 (08:26→20:10)
[2021-05-30] MEDS: Metoprolol XL (24 HR) Succ 25 MG TAB.ER.24H PO SCH (08:26)
[2021-05-30 09:05] LABS: Platelet Estimate Normal (Normal); Toxic Granulation Present (Not Present)
[2021-05-30 09:14] LABS: Troponin I 0.67 ng/mL (< 0.04)
[2021-05-30 09:56] LABS: Neutrophils # 29.9 K/mcL (1.6-8.9)
[2021-05-30] MEDS: Ampicillin/Sulbactam 1,500 MG in 0.9 % Sodium Chloride Mini Bag 100 ML IVPB SCH ×2 (12:56→21:25)
[2021-05-30] MEDS ORDERED: D5% in Water 1,000 ML IVC SCH (13:45)
[2021-05-31] MEDS: Insulin LISPRO 300 UNITS/3 ML VIAL SUBQ SCH ×4 (01:25→18:01)
[2021-05-31] MEDS: Ipratropium 1 PUFF INHALER IH SCH ×6 (03:35→23:34)
[2021-05-31 06:24] LABS: Hematocrit 39.8 % (37.5-50.1); Hemoglobin 12.2 g/dL (12.9-16.9); Immature Platelets 19.8 % (1.1-6.1); Mean Corpuscular HGB Conc 30.7 g/dL (31.6-35.5); Mean Corpuscular Hemoglobin 30.2 pg (28.0-33.3); Mean Corpuscular Volume 98.5 fL (83.0-100.0); Nucleated Red Blood Cells 0.2 /100 WBC (0); Platelet Count 178 K/mcL (140-400); Red Blood Count 4.04 M/mcL (4.19-5.50); Red Cell Distribution Width 16.5 % (11.5-14.5); White Blood Count 25.3 K/mcL (4.3-11.1)
[2021-05-31 06:30] LABS: INR 1.6
[2021-05-31 06:45] LABS: Calcium 9.4 mg/dL (8.6-10.3); Phosphorous 3.3 mg/dL (2.7-4.5); Potassium 4.6 mEq/L (3.5-5.1)
[2021-05-31 06:53] LABS: Neutrophils # 22.3 K/mcL (1.6-8.9)
[2021-05-31 06:54] LABS: Platelet Estimate Normal (Normal); Toxic Granulation Present (Not Present)
[2021-05-31 08:41] LABS: Magnesium 2.4 mg/dL (1.6-2.6)
[2021-05-31] MEDS ORDERED: 0.9 % Sodium Chloride Mini Bag 100 ML ONE (09:00)
[2021-05-31] MEDS: Dexamethasone Sodium Phos/PF 10 MG/ML VIAL IVP SCH (09:26)
[2021-05-31] MEDS: Ampicillin/Sulbactam 1,500 MG in 0.9 % Sodium Chloride Mini Bag 100 ML IVPB SCH (09:27)
[2021-05-31] MEDS: Metoprolol XL (24 HR) Succ 25 MG TAB.ER.24H PO SCH (09:35)
[2021-05-31] MEDS: Divalproex Sodium 125 MG Sprinkle Capsule (DR) PO SCH ×2 (09:35→22:14)
[2021-05-31] MEDS: Folic Acid 1 MG TABLET PO SCH (09:35)
[2021-05-31] MEDS: Cyanocobalamin (B-12) 1,000 MCG TABLET PO SCH (09:36)
[2021-05-31] MEDS ORDERED: D5% in Water 1,000 ML IVC SCH (12:15)
[2021-05-31] MEDS ORDERED: Ampicillin/Sulbactam 1,500 MG in 0.9 % Sodium Chloride Mini Bag 100 ML IVPB SCH (15:00)
[2021-05-31] MEDS: *HR* Enoxaparin 80 MG/0.8 ML SYRINGE SQ SCH (18:00)
[2021-06-01] MEDS: Ampicillin/Sulbactam 1,500 MG in 0.9 % Sodium Chloride Mini Bag 100 ML IVPB SCH ×5 (00:15→17:26)
[2021-06-01] MEDS: Insulin LISPRO 300 UNITS/3 ML VIAL SUBQ SCH ×4 (00:16→17:32)
[2021-06-01] MEDS: Ipratropium 1 PUFF INHALER IH SCH ×5 (03:42→20:04)
[2021-06-01] MEDS ORDERED: 0.9 % Sodium Chloride Mini Bag 100 ML ONE ×2 (09:23→13:12)
[2021-06-01] MEDS: Divalproex Sodium 125 MG Sprinkle Capsule (DR) PO SCH ×3 (09:26→21:45)
[2021-06-01] MEDS: Dexamethasone Sodium Phos/PF 10 MG/ML VIAL IVP SCH (09:26)
[2021-06-01] MEDS: Folic Acid 1 MG TABLET PO SCH (09:27)
[2021-06-01] MEDS: Cyanocobalamin (B-12) 1,000 MCG TABLET PO SCH (09:27)
[2021-06-01] MEDS: Metoprolol XL (24 HR) Succ 25 MG TAB.ER.24H PO SCH (09:27)
[2021-06-01] MEDS: *HR* Enoxaparin 80 MG/0.8 ML SYRINGE SQ SCH ×2 (09:33→17:25)
[2021-06-01 10:43] LABS: INR 1.5; Prothrombin Time 16.7 Seconds (9.4-12.1)
[2021-06-01 10:54] LABS: Calcium 9.6 mg/dL (8.6-10.3); Magnesium 2.4 mg/dL (1.6-2.6); Phosphorous 3.1 mg/dL (2.7-4.5); Potassium 4.2 mEq/L (3.5-5.1)
[2021-06-01] MEDS ORDERED: D5% in Water 500 ML IVC SCH (12:30)
[2021-06-02] MEDS: Ampicillin/Sulbactam 1,500 MG in 0.9 % Sodium Chloride Mini Bag 100 ML IVPB SCH ×4 (00:08→18:35)
[2021-06-02] MEDS: Ipratropium 1 PUFF INHALER IH SCH ×7 (00:14→23:55)
[2021-06-02] MEDS: Insulin LISPRO 300 UNITS/3 ML VIAL SUBQ SCH ×4 (01:04→18:21)
[2021-06-02] MEDS: *HR* Enoxaparin 80 MG/0.8 ML SYRINGE SQ SCH ×2 (06:35→18:36)
[2021-06-02] MEDS: Folic Acid 1 MG TABLET PO SCH (08:53)
[2021-06-02] MEDS: Divalproex Sodium 125 MG Sprinkle Capsule (DR) PO SCH ×2 (08:53→23:30)
[2021-06-02] MEDS: Cyanocobalamin (B-12) 1,000 MCG TABLET PO SCH (08:53)
[2021-06-02] MEDS: Metoprolol XL (24 HR) Succ 25 MG TAB.ER.24H PO SCH (08:53)
[2021-06-02] MEDS ORDERED: Lidocaine -MPF 1% 5 ML AMPUL INFILT ONE (08:55)
[2021-06-02 08:56] LABS: Basophils % 0.3 %; Eosinophils % 0.1 %
[2021-06-02 08:58] LABS: Basophils # 0.1 K/mcL (0.0-0.2); Hematocrit 40.2 % (37.5-50.1); Immature Granulocytes % 2.2 % (0-4); Immature Platelets 18.3 % (1.1-6.1); Lymphocytes # 1.1 K/mcL (0.6-4.6); Lymphocytes % 6.8 %; Mean Corpuscular HGB Conc 29.9 g/dL (31.6-35.5); Mean Corpuscular Hemoglobin 30.1 pg (28.0-33.3); Mean Corpuscular Volume 100.8 fL (83.0-100.0); Monocytes # 0.5 K/mcL (0.0-1.3); Monocytes % 2.7 %; Platelet Count 175 K/mcL (140-400); Red Blood Count 3.99 M/mcL (4.19-5.50); Red Cell Distribution Width 17.2 % (11.5-14.5); Segmented Neutrophils % 87.9 %; White Blood Count 16.7 K/mcL (4.3-11.1)
[2021-06-02 09:03] LABS: INR 1.5; Prothrombin Time 16.5 Seconds (9.4-12.1)
[2021-06-02 09:13] LABS: Albumin 2.5 g/dL (3.5-5.7); Albumin/Globulin Ratio 0.6 (1.1-2.2); Bilirubin,Total 0.8 mg/dL (0.3-1.0); Calcium 9.1 mg/dL (8.6-10.3); Globulin 4.2 g/dL (2.4-3.5); Magnesium 2.3 mg/dL (1.6-2.6); Phosphorous 3.1 mg/dL (2.7-4.5); Total Protein 6.7 g/dL (6.4-8.9)
[2021-06-02] MEDS ORDERED: D10% in Water 500 ML IVC PRN ×4 (10:37→10:49)
[2021-06-02 12:07] LABS: Neutrophils # 14.7 K/mcL (1.6-8.9)
[2021-06-02 12:08] LABS: Large Platelets Present (Not Present); Platelet Estimate Normal (Normal)
[2021-06-02] MEDS ORDERED: Clinimix 5%-20% SOLUTION 2,000 ML, Parenteral Amino Acid 10% 0 ML with MVI, adult with... IVC SCH (17:00)
[2021-06-02] MEDS ORDERED: Clinimix 5%-20% SOLUTION 2,000 ML with MVI, adult with vitamin K 10 ML, Potassium Pho... IVC SCH (17:00)
[2021-06-03] MEDS: Insulin LISPRO 300 UNITS/3 ML VIAL SUBQ SCH ×4 (00:30→21:58)
[2021-06-03] MEDS: Ampicillin/Sulbactam 1,500 MG in 0.9 % Sodium Chloride Mini Bag 100 ML IVPB SCH ×5 (00:47→21:16)
[2021-06-03] MEDS: Ipratropium 1 PUFF INHALER IH SCH ×5 (03:47→19:34)
[2021-06-03 05:51] LABS: Albumin 2.3 g/dL (3.5-5.7); Albumin/Globulin Ratio 0.5 (1.1-2.2); Bilirubin,Total 0.8 mg/dL (0.3-1.0); Calcium 8.9 mg/dL (8.6-10.3); Globulin 4.2 g/dL (2.4-3.5); Magnesium 2.4 mg/dL (1.6-2.6); Phosphorous 2.4 mg/dL (2.7-4.5); Potassium 3.9 mEq/L (3.5-5.1); Total Protein 6.5 g/dL (6.4-8.9)
[2021-06-03 06:31] LABS: INR 1.3
[2021-06-03 08:26] LABS: Monocytes % 2.7 %; Red Blood Count 3.78 M/mcL (4.19-5.50)
[2021-06-03 08:28] LABS: Basophils % 0.3 %; Eosinophils # 0.1 K/mcL (0.0-0.6); Eosinophils % 0.4 %; Hematocrit 37.9 % (37.5-50.1); Hemoglobin 11.5 g/dL (12.9-16.9); Immature Granulocytes % 2.2 % (0-4); Immature Platelets 15.6 % (1.1-6.1); Lymphocytes # 1.5 K/mcL (0.6-4.6); Lymphocytes % 10.4 %; Mean Corpuscular HGB Conc 30.3 g/dL (31.6-35.5); Mean Corpuscular Hemoglobin 30.4 pg (28.0-33.3); Mean Corpuscular Volume 100.3 fL (83.0-100.0); Mean Platelet Volume 15.1 fL (9.4-12.4); Monocytes # 0.4 K/mcL (0.0-1.3); Nucleated Red Blood Cells 1.3 /100 WBC (0); Platelet Count 201 K/mcL (140-400); Red Cell Distribution Width 17.4 % (11.5-14.5); White Blood Count 14.3 K/mcL (4.3-11.1)
[2021-06-03] MEDS: Folic Acid 1 MG TABLET PO SCH (09:06)
[2021-06-03] MEDS: Divalproex Sodium 125 MG Sprinkle Capsule (DR) PO SCH ×2 (09:06→21:46)
[2021-06-03] MEDS: Metoprolol XL (24 HR) Succ 25 MG TAB.ER.24H PO SCH (09:07)
[2021-06-03] MEDS: Cyanocobalamin (B-12) 1,000 MCG TABLET PO SCH (09:07)
[2021-06-03] MEDS: *HR* Enoxaparin 80 MG/0.8 ML SYRINGE SQ SCH ×2 (09:13→18:13)
[2021-06-03] MEDS ORDERED: Potassium Phosphate 44 MEQ in 0.9 % Sodium Chloride 250 ML IVPB ONE (11:24)
[2021-06-03] MEDS ORDERED: Clinimix 5%-20% SOLUTION 2,000 ML with MVI, adult with vitamin K 10 ML, Potassium Pho... IVC SCH (17:00)
[2021-06-04] MEDS: Ipratropium 1 PUFF INHALER IH SCH ×7 (00:02→20:39)
[2021-06-04] MEDS: Ampicillin/Sulbactam 1,500 MG in 0.9 % Sodium Chloride Mini Bag 100 ML IVPB SCH ×4 (00:27→18:07)
[2021-06-04] MEDS: Insulin LISPRO 300 UNITS/3 ML VIAL SUBQ SCH ×6 (00:27→22:51)
[2021-06-04] MEDS: *HR* Enoxaparin 80 MG/0.8 ML SYRINGE SQ SCH ×2 (04:53→18:06)
[2021-06-04 05:56] LABS: Basophils # 0.1 K/mcL (0.0-0.2); Basophils % 0.3 %; Eosinophils # 0.1 K/mcL (0.0-0.6); Eosinophils % 0.8 %; Hemoglobin 10.9 g/dL (12.9-16.9); Immature Granulocytes % 1.6 % (0-4); Immature Platelets 11.8 % (1.1-6.1); Lymphocytes # 1.5 K/mcL (0.6-4.6); Lymphocytes % 9.6 %; Mean Corpuscular HGB Conc 30.3 g/dL (31.6-35.5); Mean Corpuscular Hemoglobin 30.2 pg (28.0-33.3); Mean Corpuscular Volume 99.7 fL (83.0-100.0); Mean Platelet Volume 14.2 fL (9.4-12.4); Monocytes # 0.4 K/mcL (0.0-1.3); Monocytes % 2.5 %; Neutrophils # 13.2 K/mcL (1.6-8.9); Nucleated Red Blood Cells 1.2 /100 WBC (0); Red Blood Count 3.61 M/mcL (4.19-5.50); Red Cell Distribution Width 17.3 % (11.5-14.5); Segmented Neutrophils % 85.2 %; White Blood Count 15.5 K/mcL (4.3-11.1)
[2021-06-04 06:06] LABS: Albumin 2.3 g/dL (3.5-5.7); Albumin/Globulin Ratio 0.6 (1.1-2.2); Bilirubin,Total 0.6 mg/dL (0.3-1.0); Calcium 8.9 mg/dL (8.6-10.3); Globulin 3.9 g/dL (2.4-3.5); Magnesium 2.4 mg/dL (1.6-2.6); Phosphorous 3.1 mg/dL (2.7-4.5); Potassium 3.6 mEq/L (3.5-5.1); Total Protein 6.2 g/dL (6.4-8.9)
[2021-06-04] MEDS: Cyanocobalamin (B-12) 1,000 MCG TABLET PO SCH (09:05)
[2021-06-04] MEDS: Metoprolol XL (24 HR) Succ 25 MG TAB.ER.24H PO SCH (09:05)
[2021-06-04] MEDS: Folic Acid 1 MG TABLET PO SCH (09:05)
[2021-06-04] MEDS: Divalproex Sodium 125 MG Sprinkle Capsule (DR) PO SCH ×2 (09:05→22:51)
[2021-06-04] MEDS ORDERED: D5% in Water 1,000 ML IVC SCH ×2 (09:30→11:30)
[2021-06-04] MEDS: *HR* LORazepam 2 MG/ML VIAL IVP PRN ×2 (16:35→23:53)
[2021-06-04] MEDS: Morphine Sulfate 2 MG/ML SYRINGE IVP PRN (16:36)
[2021-06-04] MEDS ORDERED: Clinimix 5%-20% SOLUTION 2,000 ML with MVI, adult with vitamin K 10 ML, Potassium Pho... IVC SCH (17:00)
[2021-06-04] MEDS: D5% in Water 1,000 ML IVC SCH (22:51)
[2021-06-05] MEDS: Insulin LISPRO 300 UNITS/3 ML VIAL SUBQ SCH ×2 (01:11→04:11)
[2021-06-05] MEDS: Ampicillin/Sulbactam 1,500 MG in 0.9 % Sodium Chloride Mini Bag 100 ML IVPB SCH ×2 (01:12→04:54)
[2021-06-05] MEDS: Ipratropium 1 PUFF INHALER IH SCH (03:11)
[2021-06-05] MEDS: Morphine Sulfate 2 MG/ML SYRINGE IVP PRN ×2 (03:59→17:19)
[2021-06-05] MEDS: *HR* Enoxaparin 80 MG/0.8 ML SYRINGE SQ SCH (04:11)
[2021-06-05] MEDS: D5% in Water 1,000 ML IVC SCH (04:11)
[2021-06-05] MEDS: *HR* LORazepam 1 MG TABLET PO SCH ×3 (13:54→21:28)
[2021-06-05] MEDS: *HR* LORazepam 2 MG/ML VIAL IVP PRN ×2 (13:58→21:51)
[2021-06-06 05:40] VITALS: O2SAT 89
[2021-06-06 09:38] VITALS: BP 107/62; PULSE 146; TEMP 100.6
[2021-06-06] MEDS: *HR* LORazepam 2 MG/ML VIAL IVP PRN (10:28)
[2021-06-06] MEDS: Morphine Sulfate 2 MG/ML SYRINGE IVP PRN (10:29)
== END 2021-06-06 11:54 | disposition hospice, inpatient (51) | DRG 871 ==
LOC: EMEROOARM 09:43 → 3NENU 09:43 → SUATTDRO 18:00 → 3NENU 18:39
PROVIDERS: ADMIT Student in an Organized Health Care Education/Training Program; ATTEND Internal Medicine

== ENCOUNTER 2021-06-05 13:05 | Inpatient (IN) ==
[2021-06-05] MEDS ORDERED: Morphine Sulfate 2 MG/ML SYRINGE IVP PRN (15:14)
[2021-06-05] MEDS ORDERED: Bisacodyl 10 MG RECTAL SUPPOSITORY RC PRN (15:14)
[2021-06-05] MEDS ORDERED: Scopolamine Patch 1.5 MG PATCH.TD72 TD SCH (15:15)
[2021-06-05] MEDS ORDERED: Acetaminophen 650 MG RECTAL SUPP RC PRN (15:19)
[2021-06-05] MEDS ORDERED: *HR* LORazepam 2 MG/ML VIAL IVP SCH (16:00)
== END 2021-06-06 17:45 | disposition expired | DRG 951 ==
LOC: 3NENU 06-06 12:03
PROVIDERS: ADMIT Internal Medicine Hospice and Palliative Medicine; ATTEND Internal Medicine Hospice and Palliative Medicine